=== PATIENT | female | born 1985 | race Caucasian/White ===

== ENCOUNTER 2018-03-30 07:22 | Observation (INO) | payer OTHER ==
[2018-03-20 12:12] VITALS: BMI 23.0
[2018-03-30] VITALS (7 sets, daily range): BP systolic 103–118; BP diastolic 61–86; PULSE 76–84; TEMP 36.3–37; O2SAT 98–100; Ht 167.6 cm; Wt 65.9 kg
[~2018-03-30] VITALS: Ht 167.6 cm; Wt 65.9 kg
[~2018-03-30 07:22] MED LIST: BCPILLS PO; CEFAZOLIN 2000MG IV PUSH 15 ML IV SCH; CETI10TA10 PO; LACTATED RINGER'S 1000ML 1,000 ML IV SCH; MELO-83 PO; MULT-506 PO
[2018-03-30] MEDS ORDERED: ATROPINE SULFATE 0.1 MG/ML 5ML SYR IV PRN (08:00)
[2018-03-30] MEDS ORDERED: HYDROmorphone INJ 2 MG/ML SYR/VIAL IV PRN (08:00)
[2018-03-30] MEDS ORDERED: LABETALOL HCL IV 5 MG/ML 20ML IV PRN (08:00)
[2018-03-30] MEDS ORDERED: ONDANSETRON INJ 2 MG/ML 2 ML VIAL IV PRN ×2 (08:00→11:45)
[2018-03-30] MEDS ORDERED: EpHEDrine SULFATE INJ 50 MG/ML AMP IV PRN (08:00)
[2018-03-30] MEDS ORDERED: FLUMAZENIL 0.1 MG/1 ML 10 ML VIAL IV PRN (08:00)
[2018-03-30] MEDS ORDERED: PHENYLEPHRINE 100MCG/ML 5ML SYR IV PRN (08:00)
[2018-03-30] MEDS ORDERED: NALOXONE HCL 0.4 MG/1 ML VIAL/CARP IV PRN (08:00)
[2018-03-30] MEDS ORDERED: MIDAZOLAM HCL 1 MG/ML 2ML VIAL ONE (08:50)
[2018-03-30] MEDS ORDERED: FENTANYL CITRATE INJ 50 MCG/1 ML 2 ML VIAL ONE (08:50)
--- NOTE | 2018-03-30 09:07 | History & Physical Bridge Note ---
H&P Re-Evaluation Bridge Note: I have examined the patient, reviewed the History & Physical and in the interval since the performance of the History & Physical I have noted the following changes of clinical significance: No changes noted
[2018-03-30] MEDS ORDERED: ACETAMINOPHEN 1000 MG/100 ML IV IV ONE (09:23)
[2018-03-30] MEDS ORDERED: LIDOCAINE 2% JELLY 5 ML TUBE ONE (09:23)
[2018-03-30] MEDS ORDERED: BUPIVACAINE 0.5 % 5 MG/1 ML PF 10ML VIAL ONE (09:37)
[2018-03-30] MEDS ORDERED: METHYLENE BLUE 0.5% 10 ML VIAL ONE (09:37)
[2018-03-30] MEDS ORDERED: LIDOCAINE HCL 2% 2 ML VIAL (20MG/ML) ONE (10:43)
[2018-03-30] MEDS ORDERED: DEXAMETHASONE SOD INJ 4 MG/ML VIAL ONE (10:43)
[2018-03-30] MEDS ORDERED: ONDANSETRON INJ 2 MG/ML 2 ML VIAL ONE (10:43)
[2018-03-30] MEDS ORDERED: DiphenhydrAMINE HCL 50 MG/ML VIAL ONE (10:43)
[2018-03-30] MEDS ORDERED: NEOSTIGMINE METHYLSULFATE 5 MG/5 ML SYR ONE (10:43)
[2018-03-30] MEDS ORDERED: METOCLOPRAMIDE HCL INJ 5 MG/ML 2 ML VIAL ONE (10:43)
[2018-03-30] MEDS ORDERED: GLYCOPYRROLATE INJ 0.2 MG/ML VIAL ONE ×2 (10:43→11:46)
[2018-03-30] MEDS ORDERED: ROCURONIUM BROMIDE 10 MG/ML 5 ML VIAL ONE (10:43)
[2018-03-30] MEDS ORDERED: PROPOFOL IV EMULSION 10 MG/ML 20 ML VIAL ONE (10:43)
[2018-03-30] MEDS ORDERED: TISSEEL FIBRIN SEALANT 4ML TOP ONE (11:22)
[2018-03-30] MEDS ORDERED: KETOROLAC TROMETHAMINE 30 MG/ML VIAL ONE (11:34)
[2018-03-30] MEDS ORDERED: LACTATED RINGER'S 1000ML 1,000 ML IV SCH (11:35)
--- NOTE | 2018-03-30 11:37 | [facility] Post Operative Brief Note ---
Immediate Operative Summary Operative Date Mar 30, 2018. Pre-Operative Diagnosis Endometriosis Female pelvic pain Post-Operative Diagnosis Endometriosis, Female pelvic pain Procedure(s) Performed Total Laparoscopic Hysterectomy DaVinci, Bilateral Salpingectomy, Cystoscopy Surgeon DR. Elliot Chan Semiconductor Equipment Technician Surgeon(s) None Estimated Blood Loss 10ml Findings Consistent with Post-Op Diagnosis Specimens A: Cervix, Uterus and Bilateral Falliopian tubes Drains Gonzalez Anesthesia Type General Complication(s) none Disposition Accompanied Pt To Recover: no Disposition: Recovery Room / PACU
--- NOTE | 2018-03-30 11:38 | Discharge Instructions ---
Discharge Instructions Date of Service Mar 30, 2018. Admission Reason for Admission: Endometriosis, Female Pelvic Pain Discharge Discharge Diagnosis / Problem: pelvic pain Discharge Goals Goal(s): Routine recovery after surgery Activity Recommendations Activity Limitations: per Instructions/Follow-up section . Instructions / Follow-Up Instructions / Follow-Up POST OPERATIVE: BOWEL FUNCTION/MEDICATIONS: 1. Constipation pain and discomfort are the most common complaints 5-7 days after surgery. Points 2-6 address the things that can help. 2. Chewing gum can help stimulate the gut and help improve digestion and motility. 3. Milk of Magnesia 1-2 times per day until return of bowel function. 4. Colace is a stool softener that helps. Taking this 2-3 times per day until bowel function returns to normal is highly recommended. 5. Dulcolax is a laxative that may be used if several days have passed without a bowel movement. Alternatively Miralax may be used daily instead. 6. Drink plenty of fluids as this will also reduce constipation. 7. Narcotic pain medications will be prescribed by your physician. They are safe to use and we encourage you to use them. If you are not allergic, ibuprofen will also be prescribed. Many patients will be able to transition off of the narcotic medications to ibuprofen by postoperative day 3. ACTIVITY RECOMMENDATIONS: 1. Get plenty of rest and listen to your body. If you are tired, take a nap. 2. You may shower, but do not take a tub bath until you see your doctor at the 2 week post operative visit. 3. Absolutely NO intercourse and nothing in the vagina until you are examined by your doctor at the 6 week visit. At that visit it will be determined when such activities can be resumed. This can range from 6-12 weeks after your surgery depending on healing time. 4. The main physical activity in the first week should be walking. By the second week you can slowly increase activity. There are no limits on walking up and down stairs. 5. Do not lift more than 5-10 lbs for 4 weeks. Remember the "one-handed rule", i.e. if you can lift something with only one hand it's likely okay. 6. Minimize senior medical transcriptionist like vacuuming and exercising for 4 weeks. "Overdoing it" can lead to incisions not healing, pain and vaginal bleeding , so again, listen to your body. 7. Driving can be resumed when you feel able. Do not drive within 24 hours of taking a narcotic medication. EXPECTATIONS: 1. Vaginal spotting, bleeding and discharge are common after surgery. There may even be an odor to the discharge which is often related to sutures used in the vagina. If you experience heavy vaginal bleeding, call the office number day or night [phone]. 2. Bladder discomfort is common after surgery from the catheter. This usually resolves in 1-2 weeks. 3. By the end of the 3rd or 4th week you should be feeling much better. It may take up to 6 weeks for your energy levels to return to normal. 4. Narcotic medications have side effects such as: dizziness, headache, nausea and/or vomiting. If you suspect your pain medication is causing problems, call our office and we may be able to prescribe an alternate medication. 5. The skin incisions are often covered with a liquid bandage. This will gradually peel off over time. CALL THE OFFICE IF YOU HAVE ANY OF THE FOLLOWIN. Temperature of 101 degrees or higher. 2. Severe abdominal or pelvic pain not relieved by pain medication. 3. Persistent nausea or vomiting. 4. Increased pain with urination or difficulty urinating. 5. Bright red bleeding that soaks more than 1 pad per hour. CONTACT PHONE NUMBERS: Main Office: [phone] Surgical Nurse: [phone] extension [phone] Avoid all tobacco products. If you need help to stop smoking, call [place]'s FREE QUITLINE at . This is a free call. Current Hospital Diet Patient's current hospital diet: Discharge Diet Recommended Diet: Regular Diet Procedures Procedures Performed: Total Laparoscopic Hysterectomy DaVinci, Bilateral Salpingectomy, Cystoscopy Pending Studies Studies pending at discharge: no Medical Emergencies . Who to Call and When: Medical Emergencies: If at any time you feel your situation is an emergency, please call 911 immediately. . Non-Emergent Contact Non-Emergency issues call your: [facility] . . "Provider Documentation" section prepared by Trung Chan. .
[2018-03-30] MEDS ORDERED: MTR600X PO (11:39)
[2018-03-30] MEDS ORDERED: OXYC-57 PO (11:39)
[2018-03-30] MEDS ORDERED: ACETAMINOPHEN 325 MG TAB PO PRN (11:45)
[2018-03-30] MEDS ORDERED: KETOROLAC TROMETHAMINE 30 MG/ML VIAL IV. PRN (11:45)
[2018-03-30] MEDS ORDERED: IBUPROFEN 600 MG TAB PO PRN (11:45)
[2018-03-30] MEDS ORDERED: MAGNESIUM HYDROXIDE SUSP 30 ML UDC PO PRN (11:45)
[2018-03-30] MEDS ORDERED: PROMETHAZINE HCL INJ 25 MG in SODIUM CHLORIDE 0.9% 50ML 50 ML IV PRN (11:45)
[2018-03-30] MEDS ORDERED: SIMETHICONE 80 MG CHEW PO PRN (11:45)
[2018-03-30] MEDS ORDERED: PROMETHAZINE HCL INJ 12.5 MG in SODIUM CHLORIDE 0.9% 50ML 50 ML IV PRN (11:45)
[2018-03-30] MEDS ORDERED: ZOLPIDEM TARTRATE 5 MG TAB PO PRN (11:45)
[2018-03-30] MEDS ORDERED: MEPERIDINE HCL 50 MG/ML CARP IV PRN ×2 (11:45)
[2018-03-30] MEDS ORDERED: BISACODYL 10 MG SUPP PR PRN (11:45)
[2018-03-30] MEDS ORDERED: OXYCODONE/ACETAMINOPHEN 5-325 TAB PO PRN ×2 (11:45)
[2018-03-30] MEDS: FENTANYL CITRATE INJ 50 MCG/1 ML 2 ML VIAL IV PRN ×4 (12:10→12:27)
[2018-03-30] MEDS: MEPERIDINE HCL 25 MG/ML CARP IV PRN ×2 (12:26→12:31)
--- NOTE | 2018-03-30 12:30 | OPERATIVE REPORT ---
DATE OF OPERATION: 03/30/2018 PREOPERATIVE DIAGNOSES: Endometriosis confirmed by prior laparoscopy, female pelvic pain. POSTOPERATIVE DIAGNOSES: Endometriosis confirmed by prior laparoscopy, female pelvic pain. PROCEDURE: Total laparoscopic hysterectomy, bilateral salpingectomy, cystoscopy. SURGEON: Dr. Chan. INSTRUCTOR EXTENSION WORK: None. ESTIMATED BLOOD LOSS: 10 mL. FINDINGS: Consistent with postoperative diagnosis. SPECIMENS: Uterus, cervix, bilateral fallopian tubes. DRAINS: Gonzalez catheter. ANESTHETIC: General. COMPLICATIONS: None. DISPOSITION: Recovery room. DESCRIPTION OF PROCEDURE: Soledad was given a general anesthetic, prepped and draped in dorsal lithotomy position in [facility]. IV antibiotics given preoperatively. Bladder drained with a Gonzalez catheter. V-Care attached to her cervix. Gloves changed and a subumbilical incision made with scalpel using Burak technique. We did a cut down through the subcutaneous fat through the fascia, splitting the rectus muscles and entering the peritoneal cavity without difficulty. Blunt-tipped Burak trocar was then placed. Balloon inflated to stabilize the port and then CO2 gas used to insufflate the abdomen. Findings, upper abdomen normal, no sign of visceral organ injury. Deep Trendelenburg position obtained in the pelvis. There was scar tissue on the right side. The large bowel was adhesed due to likely prior endometriosis sites. The cul-de-sac, pelvic sidewalls and ovaries were free of endometriosis. Uterus appeared normal. Two robotic ports, 1 on the left and 1 on the right were then placed under direct visualization. Left upper quadrant 11 mm bladeless port placed under direct visualization. Robot docked. Arm #1 was monopolar trent, arm #2 bipolar [place]. We visualized the pelvis. Ureters followed a normal course. Using robotic instruments, we referred to the fallopian tubes and then these were removed through the accessory port. I identified the ureter location. This was well away from the uteroovarian blood supply, so then we coagulated this distal to the left ovary and then cut this with monopolar trent. Same process with the round ligament. We then skeletonized the left-sided uterine vessels and dissected away the bladder flap sharply. We isolated the left uterine vessels. These were well away from the left ureter. We then coagulated the vessels with the bipolar [place], cut with monopolar trent. The exact same process continued on the right side. Both ovaries were conserved. We then made an anterior colpotomy with the monopolar trent and completed the colpotomy to separate the uterus from its vaginal attachments. Uterus was then pulled into the vagina for pneumoperitoneum. At this stage, after irrigation, there was no bleeding. We did instrument exchange, arm #1 was monopolar trent was converted to enedina needle jeep driver, arm #2 converted to a cobra grasper. A 12-inch, 2-0 90-day V-Loc suture was then passed through the accessory port. Cuff closed from left to right, back right to left ensuring at least full 1 cm thickness bites of vaginal mucosa. Suture was cut so there was no tail. Needle removed through the accessory port. Methylene blue had been given prior to cuff closure. Tisseel was applied to 4 mL to the uterine and ovarian blood supply pedicles. Cystoscopy revealed a normal bladder. Good strong jets of bluish green urine from both left and right ureter openings. No sign of sutures in the bladder. Cystoscope removed and a new Gonzalez catheter placed. The uterus had been removed from the vagina at this stage. At this stage, the robot instruments were removed, robot undocked, and ports removed, gas allowed to escape. Incisions injected with 0.5% Marcaine. Fascia closed with 0 Vicryl in the umbilical and left upper quadrant sites and then 4-0 subcuticular Monocryl closures with Dermabond. Sponge and instrument counts correct. Urine clear at the end of procedure. I attest to the content of the Intraoperative Record and any orders documented therein. Any exception s are noted below.
--- NOTE | 2018-03-30 13:08 | Anesthesiology Progress Note ---
Anesthesia Post Op Note Date & Time Mar 30, 2018 at 13:08 Vital Signs Pain Intensity: 4 Vital Signs Past 12 Hours Date Time Temp Pulse Resp B/P (MAP) Pulse Ox O2 Delivery O2 Flow Rate FiO2 03/30/18 12:50 36.8 03/30/18 12:40 71 16 113/66 99 Nasal Cannula 2 03/30/18 12:30 36.8 67 16 111/64 99 Nasal Cannula 2 03/30/18 12:20 70 16 110/61 100 Nasal Cannula 2 03/30/18 12:10 78 16 110/68 100 Oxymask 10 03/30/18 12:00 78 16 114/61 100 Oxymask 10 03/30/18 11:52 36.0 95 16 115/61 99 Oxymask 10 03/30/18 07:51 36.8 84 16 118/86 (97) 99 Room Air Notes Mental Status: alert / awake / arousable, participated in evaluation Pt Amnestic to Procedure: Yes Nausea / Vomiting: adequately controlled Pain: adequately controlled Airway Patency, RR, SpO2: stable & adequate BP & HR: stable & adequate Hydration State: stable & adequate Anesthetic Complications: no major complications apparent
[2018-03-30] MEDS ORDERED: IV FLUIDS COMPLETED PRN (14:30)
[2018-03-30] MEDS ORDERED: DOCUSATE SODIUM 100 MG CAP PO SCH (21:00)
--- NOTE | 2018-04-01 08:57 | DISCHARGE SUMMARY ---
DATE OF SURGERY: 03/30/2018. HOSPITAL COURSE: Patient had a total laparoscopic hysterectomy on 03/30/2018. This was uncomplicated. Operative note is in the chart. Her course in the hospital was a mere few hours. She was able to void, ambulated well, tolerated an oral diet, and pain was well controlled. She had no extremity pain. PHYSICAL EXAMINATION: Vital signs are stable. She was afebrile. IMPRESSION AND PLAN: A few hours post laparoscopic hysterectomy, patient was discharged home with discharge instructions and pain medication and told to follow up in the office.
== END 2018-03-30 17:30 | disposition home or self-care (01) ==
LOC: C.ACU 07:22 → C.MS4N 07:30
PROVIDERS: ADMIT Obstetrics & Gynecology; ATTEND Obstetrics & Gynecology
DX: N80.9 Endometriosis, unspecified (principal); M06.9 Rheumatoid arthritis, unspecified; F32.9 Major depressive disorder, single episode, unspecified; J30.9 Allergic rhinitis, unspecified; Z88.2 Allergy status to sulfonamides

== ENCOUNTER → 2018-04-12 | Outpatient (CLI) | payer OTHER ==
[~2018-04-12] MED LIST changes: -CEFAZOLIN 2000MG IV PUSH 15 ML IV SCH; -LACTATED RINGER'S 1000ML 1,000 ML IV SCH; +MTR600X PO; +OXYC-57 PO
== END | disposition home or self-care (01) ==
LOC: C.LABSPEC 11:19
PROVIDERS: ATTEND Obstetrics & Gynecology
DX: Z98.890 Other specified postprocedural states (principal)